=== PATIENT | male | born 2005 | race Hispanic/Latino ===

== ENCOUNTER 2024-07-07 21:49 | Emergency (ER) | payer SELFPAY ==
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
[2024-07-07] MEDS ORDERED: NA CHLORIDE 0.9% 1,000 ML ONE (23:00)
[2024-07-07 23:13] LABS: Absolute Basophils 0.1 K/uL (0-0.5); Absolute Eosinophils 0.1 K/uL (0-0.5); Absolute Lymphocytes (CBC) 1.6 K/uL (0.7-4.9); Absolute Monocytes 1.4 K/uL (0.1-1.3); Absolute Neutrophil 15.6 K/uL (1.8-8.0); Basophils % 0.6 % (0-1.3); Eosinophils % 0.7 % (0-4.4); Hematocrit 42.7 % (39.6-49.0); Hemoglobin 14.4 g/dL (13.6-17.9); Lymphocytes % 8.6 % (15.3-44.8); MCH 30.9 pg (27.0-35.0); MCHC 33.7 g/dL (32.0-36.0); MCV 91.5 fL (80-100); MPV 7.9 fL (7.6-11.3); Monocytes % 7.4 % (3.3-12.3); Neutrophils % 82.7 % (41.7-73.7); Nucleated Red Blood Cells % 0.1 % (0-0); Platelets 306 thou/uL (152-406); RBC Red Blood Cell Count 4.66 M/uL (4.33-5.43); Red Cell Distribution Width 12.8 % (12.1-15.2)
[2024-07-07 23:19] LABS: Protime INR 1.14
[2024-07-07 23:26] LABS: ALT/SGPT 24 U/L (16-61); AST/SGOT 19 U/L (15-37); Albumin 4.1 g/dL (3.4-5.0); Albumin/Globulin Ratio 1.1 (1.1-1.8); Alkaline Phosphatase 151 U/L (45-117); Anion Gap 18.2 mEq/L (5.0-15.0); BUN Blood Urea Nitrogen 10 mg/dL (7-18); Bicarbonate 18 mEq/L (21-32); Bilirubin Total 0.5 mg/dL (0.2-1.0); Globulin 3.9 g/dL (2.3-3.5); Glomerular Filtration Rate 91 ml/min (=/>90); Glucose Level 84 mg/dL (74-106); Potassium 3.2 mEq/L (3.5-5.1); Sodium Level 140 mEq/L (136-145)
[2024-07-07 23:27] LABS: Bilirubin Direct < 0.2 mg/dL (0-0.2); Bilirubin Indirect, Calculated 0.3 mg/dL (0.2-0.8)
[2024-07-07 23:50] LABS: Barbiturates NEGATIVE (NEGATIVE); Benzodiazepines NEGATIVE (NEGATIVE); Cocaine NEGATIVE (NEGATIVE); METHAMPHETAM NEGATIVE (NEGATIVE); Methadone NEGATIVE (NEGATIVE); Opiates NEGATIVE (NEGATIVE); Phencyclidine NEGATIVE (NEGATIVE); THC Cannibis POSITIVE (NEGATIVE)
[2024-07-08] MEDS ORDERED: POTASSIUM 25 MEQ EFFERV TAB ONE (00:24)
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
[2024-07-08 01:23] VITALS: TEMP 98; O2SAT 100
[2024-07-08 01:26] VITALS: BP 120/82
--- NOTE | 2024-07-08 05:27 | RAD REPORT ---
EXAM: XR Right Elbow Complete, 3 or More Views CLINICAL HISTORY: The patient is 19 years old and is Male; PAIN TECHNIQUE: Frontal, lateral and oblique views of the right elbow. COMPARISON: No relevant prior studies available. FINDINGS: BONES/JOINTS: Unremarkable. No acute fracture. No dislocation. SOFT TISSUES: Unremarkable. IMPRESSION: Normal right elbow radiographs. Electronically signed by: Jeannie Roberts MD 07/07/2024 11:05 PM [facility] Due to temporary technical issues with the PACS/[employer] reporting system, reports are being carmen d by the in-house radiologist without review as a courtesy to ensure prompt reporting the interpreting radiologist is fully responsible for the content of the report. Transcribed Date/Time: 07/08/2024 5:27 AM
--- NOTE | 2024-07-08 05:28 | RAD REPORT ---
EXAM DESCRIPTION: Knee Right 3 View CLINICAL HISTORY: PAIN TECHNIQUE: Three views of the right knee are submitted. COMPARISON: None available for comparison FINDINGS: Bones: No acute fracture or dislocation. Joints: Joint spaces are unremarkable. Soft tissues: No radiopaque foreign bodies. IMPRESSION: No acute fracture or dislocation of the right knee. Electronically signed by: Leobardo Esposito MD 07/07/2024 11:05 PM R D MANAGER Due to temporary technical issues with the PACS/[employer] reporting system, reports are being carmen d by the in-house radiologist without review as a courtesy to ensure prompt reporting the interpreting radiologist is fully responsible for the content of the report. Transcribed Date/Time: 07/08/2024 5:28 AM
--- NOTE | 2024-07-08 05:28 | RAD REPORT ---
EXAM: XR Left Knee, 3 Views CLINICAL HISTORY: The patient is 19 years old and is Male; PAIN TECHNIQUE: Three views of the left knee. COMPARISON: No relevant prior studies available. FINDINGS: BONES/JOINTS: Unremarkable. No acute fracture. No dislocation. SOFT TISSUES: Unremarkable. IMPRESSION: Normal left knee radiographs. Electronically signed by: Jeannie Roberts MD 07/07/2024 11:05 PM [facility] Due to temporary technical issues with the PACS/[employer] reporting system, reports are being carmen d by the in-house radiologist without review as a courtesy to ensure prompt reporting the interpreting radiologist is fully responsible for the content of the report. Transcribed Date/Time: 07/08/2024 5:27 AM
--- NOTE | 2024-07-09 12:45 | EKG ---
Test Date: 2024-07-07 Test Time: 23:49:52 Forming Department Supervisor: WAYNE MEASUREMENT RESULTS: Intervals: Rate: 99 ID: [id number] QRSD: 86 QT: 326 QTc: 418 [place]: P: 70 ID: [id number] QRS: 3 T: 44 INTERPRETIVE STATEMENTS: Normal sinus rhythm Normal ECG No previous ECG available for comparison Electronically Signed On 07-09-24 12:42:06 WHARF HELPER by Esau Cameron
== END 2024-07-08 01:16 | disposition home or self-care (01) ==
LOC: ER 21:49
DX: S00.83XA Contusion of other part of head, initial encounter (principal); M54.2 Cervicalgia; S80.212A Abrasion, left knee, initial encounter; S80.211A Abrasion, right knee, initial encounter; S50.311A Abrasion of right elbow, initial encounter
CPT/HCPCS: 36415; 70450; 72125; 80048; 80076; 80307; 82077; 85025; 85610; 85730; 93005; 99284; J7030